=== PATIENT | male | born 1960 | race Caucasian/White ===

== ENCOUNTER 2018-10-02 14:39 | Observation (INO) | payer OTHER ==
[2018-10-02] MEDS ORDERED: NACHLORIDE 0.45% 1,000 ML IV SCH (16:00)
[2018-10-02] MEDS ORDERED: ACETAMINOPHEN 325 MG TABLET PO PRN (16:00)
[2018-10-02] MEDS ORDERED: ENOXAPARIN 40 MG/0.4 ML SQ SCH (16:00)
[2018-10-02] MEDS ORDERED: LOPERAMIDE HCL 2 MG CAPSULE PO PRN (16:00)
[2018-10-02] MEDS ORDERED: INFLUENZA VACCINE (for 3y+) 0.5 ML DOSE IMVAC ONE (16:00)
[2018-10-02] MEDS ORDERED: PNEUMOCOCCAL VACCINE 0.5 ML IMVAC ONE (16:00)
[2018-10-02] MEDS ORDERED: DIPHENHYDRAMINE 25 MG TAB/CAP PO PRN (16:00)
[2018-10-02] MEDS ORDERED: ONDANSETRON 4 MG (ODT) TAB PO PRN (16:00)
[2018-10-02] MEDS ORDERED: ONDANSETRON 4 MG/2 ML VIAL IV PRN (16:00)
[2018-10-02] MEDS ORDERED: POLYETHYL GLY 3350 17 GM/DOSE PO PRN (16:00)
[2018-10-02 17:09] VITALS: BMI 29.9
[2018-10-02 17:11] LABS: Absolute Lymphocytes (CBC) 1.5 K/uL (0.7-4.9); Absolute Monocytes 0.5 K/uL (0.1-1.3); Absolute Neutrophil 3.4 K/uL (1.8-8.0); Basophils % 0.8 % (0-1.3); Eosinophils % 1.8 % (0-4.4); Hematocrit 39.3 % (39.6-49.0); Lymphocytes % 26.7 % (15.3-44.8); MCH 31.1 pg (27.0-35.0); MCV 94.1 fL (80-100); MPV 9.2 fL (7.6-11.3); Monocytes % 9.5 % (3.3-12.3); RBC Red Blood Cell Count 4.18 M/uL (4.33-5.43)
[2018-10-02 17:15] LABS: Protime INR 1.13
[2018-10-02 17:27] LABS: Urine Appearance CLEAR; Urine Bilirubin NEGATIVE (NEG); Urine Blood NEGATIVE (NEG); Urine Color YELLOW; Urine Glucose 3+ (NEG); Urine Protein NEGATIVE (NEG); Urine Specific Gravity >=1.030 (1.005-1.030); Urine Urobilinogen 0.2 mg/dL (0.2-1.0)
[2018-10-02 17:28] LABS: Urine Microscopic Reflex NO UMIC
[2018-10-02] MEDS ORDERED: D50W 25 GM/50 ML SYRINGE IV PRN (17:42)
[2018-10-02] MEDS ORDERED: GLUCAGON 1 MG/VIAL IM PRN (17:42)
[2018-10-02] MEDS ORDERED: INSULIN GLARGINE 100 UNITS/ML SQ SCH (18:00)
[2018-10-02] MEDS: INSULIN -REGULAR HUMAN 50 UNIT/0.5 ML ML SQ SCH ×2 (18:32→21:00)
[2018-10-02 18:37] LABS: ALT/SGPT 29 U/L (12-78); AST/SGOT 17 U/L (15-37); Albumin 3.3 g/dL (3.4-5.0); Alkaline Phosphatase 80 U/L (45-117); BUN Blood Urea Nitrogen 33 mg/dL (7-18); Bicarbonate 26 mmol/L (21-32); Bilirubin Direct < 0.1 mg/dL (0-0.2); Bilirubin Total 0.3 mg/dL (0.2-1.0); Magnesium 1.5 mg/dL (1.8-2.4); Phosphorus 2.9 mg/dL (2.5-4.9); Protein, Total 6.9 g/dL (6.4-8.2); Sodium Level 129 mmol/L (136-145); Thyroid Stimulating Hormone 0.878 uIU/mL (0.360-3.740)
[2018-10-02 18:40] LABS: Glucose Level 593 mg/dL (74-106); Potassium 6.5 mmol/L (3.5-5.1)
[2018-10-02] MEDS ORDERED: SOD POLYSTYREN SUL 15 GM/60 ML UCUP PO ONE (18:47)
--- NOTE | 2018-10-02 19:26 | RAD REPORT ---
EXAM DESCRIPTION: RAD - Chest Pa And Lat (2 Views) - 10/02/2018 6:28 pm CLINICAL HISTORY: Shortness of breath, MR SA infection COMPARISON: January 2017 TECHNIQUE: PA and lateral views of the chest were obtained. FINDINGS: The lungs are clear of a peripheral mass, consolidation or failure finding. Fullness of th e left hilum is not clearly different from comparison. Lung markings are also not clearly different. Heart size is normal and central vasculature is within normal limits. No pleural effusion or pneum othorax seen. No acute bony finding noted. No aortic abnormality. IMPRESSION: Lung markings are prominent but not clearly different from comparison. No significant change from comparison.
[2018-10-02] MEDS ORDERED: Magnesium Sulfate 2gm IVPB 2 G/50 ML BAG IV ONE (21:00)
[2018-10-02] MEDS ORDERED: hydrOXYzine HCl 25 MG TAB PO PRN (21:59)
[2018-10-02] MEDS ORDERED: TRAMADOL HCL 50 MG TAB PO PRN (21:59)
--- NOTE | 2018-10-02 22:05 | EKG ---
Test Date: 2018-10-02 Test Time: 16:50:11 Wall Attendant: JOJO MEASUREMENT RESULTS: Intervals: Rate: 85 HI: 220 QRSD: 86 QT: 356 QTc: 423 [place]: P: 65 HI: 220 QRS: 45 T: 58 INTERPRETIVE STATEMENTS: Sinus rhythm with 1st degree AV block Nonspecific ST and T wave abnormality Abnormal ECG Compared to ECG 11/12/2016 14:39:16 First degree AV block now present ST (T wave) deviation now present Electronically Signed On 10-02-18 22:04:20 CDT by Santosh James
[2018-10-02] MEDS: NACHLORIDE 0.45% 1,000 ML IV SCH (22:10)
[2018-10-02 23:15] LABS: Potassium 4.4 mmol/L (3.5-5.1)
[2018-10-03 06:24] LABS: Magnesium 2.1 mg/dL (1.8-2.4); Potassium 3.7 mmol/L (3.5-5.1)
[2018-10-03 06:29] LABS: Absolute Lymphocytes (CBC) 3.2 K/uL (0.7-4.9); Absolute Monocytes 0.7 K/uL (0.1-1.3); Absolute Neutrophil 1.6 K/uL (1.8-8.0); Basophils % 0.7 % (0-1.3); Hematocrit 39.9 % (39.6-49.0); Lymphocytes % 55.1 % (15.3-44.8); MCH 31.6 pg (27.0-35.0); MCV 92.3 fL (80-100); MPV 8.4 fL (7.6-11.3); Monocytes % 12.1 % (3.3-12.3); RBC Red Blood Cell Count 4.33 M/uL (4.33-5.43)
--- NOTE | 2018-10-03 07:17 | RAD REPORT ---
EXAM DESCRIPTION: RAD - Chest Single View - 10/03/2018 1:31 am CLINICAL HISTORY: PICC line placement A preliminary report was provided at the time of the study and reviewed prior to final report. COMPARISON: None. FINDINGS: Portable chest was obtained following placement of a right upper extremity PICC line. The catheter tip is in the distal SVC.
[2018-10-03] MEDS ORDERED: POTASSIUM 25 MEQ EFFERV TAB PO ONE (07:21)
[2018-10-03] MEDS: INSULIN -REGULAR HUMAN 50 UNIT/0.5 ML ML SQ SCH ×2 (07:30→11:51)
[2018-10-03 07:52] LABS: Blood Morphology Comment NOT SEEN (NOT SEEN); Platelet Estimate ADEQ
[2018-10-03 08:55] VITALS: O2SAT 98
[2018-10-03] MEDS ORDERED: NA CHLORIDE 0.9% IVPB SCH (09:00)
[2018-10-03] MEDS ORDERED: DAPTOMYCIN IVPB SCH (09:00)
[2018-10-03] MEDS ORDERED: ENOXAPARIN 40 MG/0.4 ML SQ SCH (09:00)
[2018-10-03] MEDS ORDERED: GABAPENTIN 400 MG CAP PO SCH (09:00)
[2018-10-03] MEDS: NACHLORIDE 0.45% 1,000 ML IV SCH (11:20)
[2018-10-03 12:16] VITALS: BP 123/73; TEMP 98.2
--- NOTE | 2018-10-03 13:50 | P.DS ---
Admission Date: 10/02/18 Discharge Date: 10/03/18 Disposition: ROUTINE DISCHARGE Discharge Condition: FAIR Brief History of Present Illness: MR FLAHERTY HAS REFRACTORY CELLULITIS THAT CLINICALLY LOOKS LIKE MRSA. FAILED TO RECOVER WITH CIPRO AND DOXYCYCLIN. HE IS ALLERGI TO MANY MEDS. AT THIS POINT WE NEED DAPTOMYCIN DAILY FOR 14 DAYS. HE HAD VERY HIGH K SO WE HAD TO STOP LISINOPRIL AND GIVE MEDS TO REDUCE K. HE GETS LAB EVERY 3 MTHS. I HAVE REFERRED HIM FOR INSULIN PUMP BUT EVEN WITH THAT HE WAS NOT COMPLIANT IT WAS INCONVENIENT IN THE PAST WITH THE [email or web address] GAME OR SO. Vital Signs/Physical Exam: Temp Pulse Resp BP Pulse Ox 98.2 F 77 18 123/73 100 10/03/18 12:00 10/03/18 12:00 10/03/18 12:00 10/03/18 12:00 10/03/18 12:00 Laboratory Data at Discharge: WBC 5.8 K/uL (4.3-10.9) 10/03/18 05:39 Hgb 13.7 g/dL (13.6-17.9) 10/03/18 05:39 Hct 39.9 % (39.6-49.0) 10/03/18 05:39 Plt Count 275 K/uL (152-406) 10/03/18 05:39 PT 13.4 SECONDS (9.5-12.5) H 10/02/18 16:42 INR 1.13 10/02/18 16:42 APTT 34.0 SECONDS (24.3-36.9) 10/02/18 16:42 Sodium 138 mmol/L (136-145) 10/03/18 05:39 Potassium 3.7 mmol/L (3.5-5.1) 10/03/18 05:39 BUN 31 mg/dL (7-18) H 10/03/18 05:39 Creatinine 1.40 mg/dL (0.55-1.3) H 10/03/18 05:39 Glucose 55 mg/dL (74-106) L 10/03/18 05:39 Phosphorus 2.9 mg/dL (2.5-4.9) 10/02/18 16:42 Magnesium 2.1 mg/dL (1.8-2.4) D 10/03/18 05:39 Total Bilirubin 0.3 mg/dL (0.2-1.0) 10/02/18 16:42 AST 17 U/L (15-37) 10/02/18 16:42 ALT 29 U/L (12-78) 10/02/18 16:42 Alkaline Phosphatase 80 U/L (45-117) 10/02/18 16:42 Home Medications: Gabapentin [Neurontin] 800 mg PO TID 11/30/14 Rivaroxaban [Xarelto] 20 mg PO BEDTIME 11/30/14 Simvastatin 40 mg PO BEDTIME 11/30/14 Tramadol HCl [Ultram] 50 mg PO BID PRN 11/12/16 Ascorbic Acid [Vitamin C*] 500 mg PO BEDTIME 10/02/18 Cholecalciferol (Vitamin D3) [Vitamin D 1000 Iu Tab*] 2,000 unit PO BEDTIME 12/19 Docosahexanoic AC/Epa [Fish Oil 1,000 MG*] 1 cap PO BEDTIME 10/02/18 Insulin Glargine Human [Lantus*] 38 units SQ BEDTIME 10/02/18 Lactobacillus Combination No.4 [Probiotic] 1 cap PO BEDTIME 10/02/18 Testosterone Cypionate [Testone Cik] 1 ml IM SEECOM 10/02/18 Ubidecarenone/Vitamin E [Co Q-10 50 mg Softgel] 1 cap PO BEDTIME 10/02/18 Vitamin B Complex [Vitamin B Complex*] 1 cap PO BEDTIME 10/02/18 hydrOXYzine pamoate [Hydroxyzine Pamoate] 25 mg PO Q8H PRN 10/02/18 Patient Discharge Instructions: Jimmy, raise your insulin by 2 units every 2 days until glucose is controlled. If you eat at a set time you should not have low glucose. Because your potassium went high , I stopped lisinopril. I wll see you in office in one week.Take Daptomycin daily once , same time daily. Diet: ADA
[2018-10-03] MEDS ORDERED: RIVAROXABAN 15 MG TABLET PO SCH (21:00)
[2018-10-03] MEDS ORDERED: LACTOBACILLUS/ACIDOPHILUS TAB PO SCH (21:00)
[2018-10-03] MEDS ORDERED: ATORVASTATIN 20 MG TAB PO SCH (21:00)
[2018-10-03] MEDS ORDERED: PROMOD 30 ML DOSE PO SCH (21:00)
== END 2018-10-03 15:51 | disposition home or self-care (01) ==
LOC: 4TH 15:07
PROVIDERS: ADMIT Internal Medicine; ATTEND Internal Medicine
PROC: 02HV33Z Insertion of Infusion Device into Superior Vena Cava, Percutaneous Approach (ICD-10-PCS; principal; 2018-10-03)
DX: L03.116 Cellulitis of left lower limb (principal); E11.65 Type 2 diabetes mellitus with hyperglycemia; I10 Essential (primary) hypertension
CPT/HCPCS: 36415; 71045; 71046; 80048; 80076; 81003; 82043; 82306; 82607; 82947; 82962; 83036; 83735; 84100; 84443; 85025; 85610; 85730; 87040; 87086; 87088; 93005; G0378; J0878; J1650; J3475

== ENCOUNTER 2019-04-29 13:27 | Inpatient (IN) | payer OTHER ==
[2019-04-29] MEDS ORDERED: GLUCAGON 1 MG/VIAL IM PRN (14:46)
[2019-04-29] MEDS ORDERED: D50W 25 GM/50 ML SYRINGE IV PRN (14:46)
[2019-04-29 15:08] VITALS: BMI 30.1
[2019-04-29] MEDS ORDERED: ACETAMINOPHEN 325 MG TABLET PO PRN (15:23)
[2019-04-29 16:13] LABS: Absolute Lymphocytes (CBC) 1.6 K/uL (0.7-4.9); Absolute Neutrophil 9.4 K/uL (1.8-8.0); Basophils % 0.2 % (0-1.3); Eosinophils % 0.7 % (0-4.4); Lymphocytes % 13.3 % (15.3-44.8); MPV 8.6 fL (7.6-11.3); Monocytes % 7.9 % (3.3-12.3); RBC Red Blood Cell Count 4.86 M/uL (4.33-5.43)
[2019-04-29 16:17] LABS: Protime INR 1.97
[2019-04-29] MEDS ORDERED: INSULIN -REGULAR HUMAN 50 UNIT/0.5 ML ML SQ SCH (16:30)
[2019-04-29] MEDS: INSULIN -REGULAR HUMAN 50 UNIT/0.5 ML ML SQ SCH ×2 (16:30→20:33)
[2019-04-29] MEDS: Meropenem 1,000 MG in NA CHLORIDE 0.9% 100 ML IV SCH (16:58)
[2019-04-29 17:50] LABS: Potassium 5.1 mmol/L (3.5-5.1)
[2019-04-29 21:00] LABS: Urine Appearance CLEAR; Urine Bilirubin NEGATIVE (NEG); Urine Blood NEGATIVE (NEG); Urine Color YELLOW; Urine Glucose 3+ (NEG); Urine Protein NEGATIVE (NEG); Urine Specific Gravity >=1.030 (1.005-1.030); Urine Urobilinogen 0.2 mg/dL (0.2-1.0); Urine pH 5.5 (5.0-7.0)
[2019-04-29 21:01] LABS: Urine Microscopic Reflex NO UMIC
[2019-04-30] MEDS: Meropenem 1,000 MG in NA CHLORIDE 0.9% 100 ML IV SCH ×3 (00:13→17:20)
[2019-04-30] MEDS: INSULIN -REGULAR HUMAN 50 UNIT/0.5 ML ML SQ SCH ×4 (07:30→21:00)
--- NOTE | 2019-04-30 07:58 | P.HP ---
Certification for Inpatient Patient admitted to: Inpatient With expected LOS: >2 Midnights Practitioner: I am a practitioner with admitting privileges, knowledge of patient current condition, hospital course, and medical plan of care. Services: Services provided to patient in accordance with Admission requirements found in Title 42 Section 412.3 of the Code of Federal Regulations Patient History Date of Service: 04/30/19 Reason for admission: RIGHT FOOT INFECTION. History of Present Illness: MR. FLAHERTY HAS DIABETIC NEUROPATHY, HAS HAD GREAT TOE AMPUTATION ON R SIDE. SINCE THEN HE HAS HAD STUMP CALLUS FOR LONG TIME. HE HAD OSTEOMYELITIS OF FIRST TOE AND ALSO BASE OF SECOND TOE WHERE THERE WAS NO OPENING. AFTER [facility] ORAL ABX HE IMPROVED USING CIPRO AND DOXYCYCLIN. HE LOVES TO TRAVEL. 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 LAST TIME WHEN HE WENT TO [place] RECENTLY, HE WALKED A LOT ON THE STUMP AND CAME BACK WITH PAINFUL AND RED FOOT YESTERDAY. HE ALSO IS STUCK WITH A HOUSE THAT HAS FLOODED 3 TIMES LATELY. HE HAS TO WORK TO GET IT CLEANED AND REPAIRED. Allergies ceftriaxone [From Rocephin] Allergy (Verified 12/24/16 10:33) Hives/Rash Sulfa (Sulfonamide Antibiotics) Allergy (Verified 03/30/16 16:42) Hives vancomycin Allergy (Verified 12/24/16 10:33) Hives/Rash thiazolidinediones Allergy (Uncoded 11/30/14 16:24) Unknown Home Medications: Irbesartan [Avapro*] 1 tab PO DAILY 04/29/19 Rivaroxaban [Xarelto*] 20 mg PO DAILY 04/29/19 Simvastatin 1 tab PO BEDTIME 04/29/19 - Past Medical/Surgical History Has patient received pneumonia vaccine in the past: No Diabetic: Yes -: IDDM -: Hypercoagulation -: HTN -: Neuropathy -: hyperlipidemia -: DVT left leg -: neuropathy -: right hand ring finger trigger finger -: Left rotator cuff repair -: cataracts, bilateral lenses -: right great toe amputation 2015 -: right hand ring finger trigger finger( 2 weeks ago) -: right wrist surgery - Family History Father -: Diabetes, Cancer Mother Notes: well - Social History Smoking Status: Current some day smoker Alcohol use: Yes CD- Drugs: No Caffeine use: Yes Place of Residence: Home Review of Systems 10-point ROS is otherwise unremarkable Physical Examination - Vital Signs Temperature: 97.5 F Blood Pressure: 116/56 Pulse: 88 Respirations: 20 Pulse Ox (%): 96 - Physical Exam General: Moderate distress HEENT: Atraumatic, PERRLA, Mucous membr. moist/pink, EOMI, Sclerae nonicteric Neck: Supple, 2+ carotid pulse no bruit, No LAD, Without JVD or thyroid abnormality Respiratory: Clear to auscultation bilaterally, Normal air movement Cardiovascular: Regular rate/rhythm, Normal S1 S2 Gastrointestinal: Normal bowel sounds, No tenderness Musculoskeletal: No tenderness Integumentary: Diabetic ulcer (RIGHT FOOT CALLUS AT STUMP OF FIRST TOE WITH INFECTION NOW. CELLULITIS COVERING RODNEY WHOLE FOOT.) Neurological: Normal gait, Normal speech, Normal strength at 5/5 x4 extr, Normal tone, Normal affect Lymphatics: No axilla or inguinal lymphadenopathy - Studies Laboratory Data (last 24 hrs) 04/29/19 15:23: PT 22.6 H, INR 1.97, APTT 35.4 04/29/19 15:23: WBC 12.1 H, Hgb 14.7, Hct 45.0, Plt Count 233 04/29/19 15:23: Sodium 134 L, Potassium 5.1, BUN 25 H, Creatinine 1.55 H, Glucose 356 H Assessment and Plan - Problems (Diagnosis) (1) Cellulitis Onset Date: 10/03/18 Status: Acute Plan: IV MERREM. DICTATION OF THIS NOTE IS LATE HOSPITAL HAS COMPTUER ISSUES FOR LAST 254 HOURS. PICC LINE MRI REPORT PENDING. 6 WEEKS OF ABX POSSIBLE. HE WANTS AMPUTATION DONE TOE IS NOT HEALING FOR LONG TIME. (2) Diabetes mellitus Current Visit: No Status: Chronic Plan: POOR CONTROL EFFORTS ARE POOR ALSO. (3) Osteomyelitis Current Visit: No Status: Chronic - Advance Directives Does patient have a Living Will: No Does patient have a Durable POA for Healthcare: No
[2019-04-30] MEDS: RIVAROXABAN 20 MG TABLET PO SCH (10:16)
[2019-04-30] MEDS: IRBESARTAN 150 MG TAB PO SCH (10:16)
--- NOTE | 2019-04-30 15:26 | RAD REPORT ---
EXAM DESCRIPTION: RAD - Chest Single View - 04/30/2019 11:39 am CLINICAL HISTORY: Device placement PICC line placement FINDINGS: A PICC line has been inserted with its tip in the distal superior vena cava.
--- NOTE | 2019-04-30 17:50 | P.PN ---
Subjective Date of Service: 04/30/19 Chief Complaint: RIGHT FOOT INFECTION. Subjective: Improving (PAIN,FEVER, FOOT HAS IMPROVED.) Review of Systems 10-point ROS is otherwise unremarkable Physical Examination - Vital Signs Temperature: 97.3 F Blood Pressure: 125/68 Pulse: 84 Respirations: 16 Pulse Ox (%): 99 - Physical Exam General: Alert, Mild distress HEENT: Atraumatic, PERRLA, EOMI Neck: Supple, JVD not distended Respiratory: Clear to auscultation bilaterally, Normal air movement Cardiovascular: Regular rate/rhythm, Normal S1 S2 Gastrointestinal: Normal bowel sounds, No tenderness Musculoskeletal: No tenderness Integumentary: Erythema (LOT BETTER AND NO REACTION TO ABXSO FAR.), Warmth Neurological: Normal speech, Normal tone, Normal affect Lymphatics: No axilla or inguinal lymphadenopathy - Studies Laboratory Data (last 24 hrs) 04/29/19 15:23: Sodium 134 L, Potassium 5.1, BUN 25 H, Creatinine 1.55 H, Glucose 356 H Medications List Reviewed: Yes Assessment And Plan - Current Problems (Diagnosis) (1) Cellulitis Onset Date: 10/03/18 Status: Acute Plan: IV MERREM. DICTATION OF THIS NOTE IS LATE HOSPITAL HAS COMPTUER ISSUES FOR LAST 254 HOURS. PICC LINE MRI REPORT PENDING. 6 WEEKS OF ABX POSSIBLE. HE WANTS AMPUTATION DONE TOE IS NOT HEALING FOR LONG TIME. IV MERREM HE HAS OSTEOMYELITIS OF THE TOE SUSPECTED. (2) Diabetes mellitus Current Visit: No Status: Chronic Plan: POOR CONTROL EFFORTS ARE POOR ALSO. (3) Osteomyelitis Current Visit: No Status: Chronic
--- NOTE | 2019-04-30 17:52 | RAD REPORT ---
EXAM DESCRIPTION: MRI - Foot Right Wo Cont - 04/29/2019 10:00 pm CLINICAL HISTORY: osteomylelitis Pain and swelling, soft tissue wound. COMPARISON: Foot Right Wo Cont dated 10/29/2017; Foot Right Wo Cont dated 03/27/2017; Foot Right Wo C ont dated 12/28/2016; Foot Right Wo Cont dated 11/12/2016 FINDINGS: Previous amputation involving the great toe is noted. The residual base of the proximal ph alanx of the great toe demonstrates abnormal diminished T1 signal and elevated T2 signal with surroun ding edematous tissues compatible with osteomyelitis. The first metatarsal appear spared. No addition al areas of osteomyelitis seen. No localized fluid collections are seen. IMPRESSION: Mild osteomyelitis involving the remnant proximal phalanx of the great toe as detailed.
[2019-04-30] MEDS ORDERED: ATORVASTATIN 20 MG TAB PO SCH (21:00)
[2019-05-01] MEDS: Meropenem 1,000 MG in NA CHLORIDE 0.9% 100 ML IV SCH ×2 (00:14→08:09)
[2019-05-01 02:06] VITALS: O2SAT 98
[2019-05-01] MEDS: INSULIN -REGULAR HUMAN 50 UNIT/0.5 ML ML SQ SCH ×2 (07:30→11:30)
[2019-05-01] MEDS: IRBESARTAN 150 MG TAB PO SCH (08:09)
[2019-05-01] MEDS: RIVAROXABAN 20 MG TABLET PO SCH (08:09)
[2019-05-01] MEDS ORDERED: COLLAGENASE 30 GM OINTMENT TOP SCH (09:00)
[2019-05-01 12:01] VITALS: BP 124/65; TEMP 97.9
--- NOTE | 2019-05-01 13:44 | P.DS ---
Admission Date: 04/29/19 Discharge Date: 05/01/19 Disposition: ROUTINE DISCHARGE Discharge Condition: FAIR Reason for Admission: RIGHT FOOT INFECTION. - Problems (1) Cellulitis Onset Date: 10/03/18 Status: Acute (2) Diabetes mellitus Current Visit: No Status: Chronic (3) Osteomyelitis Current Visit: No Status: Chronic Brief History of Present Illness: MR. FLAHERTY HAS DIABETIC NEUROPATHY, HAS HAD GREAT TOE AMPUTATION ON R SIDE. SINCE THEN HE HAS HAD STUMP CALLUS FOR LONG TIME. HE HAD OSTEOMYELITIS OF FIRST TOE AND ALSO BASE OF SECOND TOE WHERE THERE WAS NO OPENING. AFTER [facility] ORAL ABX HE IMPROVED USING CIPRO AND DOXYCYCLIN. HE LOVES TO TRAVEL. 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 LAST TIME WHEN HE WENT TO [place] RECENTLY, HE WALKED A LOT ON THE STUMP AND CAME BACK WITH PAINFUL AND RED FOOT YESTERDAY. HE ALSO IS STUCK WITH A HOUSE THAT HAS FLOODED 3 TIMES LATELY. HE HAS TO WORK TO GET IT CLEANED AND REPAIRED. FLORENCIA HAS IMPROVED WELL. HIS STUMP HAS MILD OSTEOMYELITIS. HE WILL BE ON IV MERREM FOR ABX. IT HAS WORKED GREAT. HE IS ALLERGIC TO MANY MEDICINES. I DON' T SEE ANY REASON FOR DEEP CULTURE HIS WOUND IS CONTAMINATED AND HE IS ALLERGIC TO MOST MEDICINES. Vital Signs/Physical Exam: Temp Pulse Resp BP Pulse Ox 97.9 F 88 14 124/65 96 05/01/19 12:00 05/01/19 12:00 05/01/19 12:00 05/01/19 12:00 05/01/19 12:00 Laboratory Data at Discharge: WBC 12.1 K/uL (4.3-10.9) H 04/29/19 15:23 Hgb 14.7 g/dL (13.6-17.9) 04/29/19 15:23 Hct 45.0 % (39.6-49.0) 04/29/19 15:23 Plt Count 233 K/uL (152-406) 04/29/19 15:23 PT 22.6 SECONDS (9.5-12.5) H 04/29/19 15:23 INR 1.97 04/29/19 15:23 APTT 35.4 SECONDS (24.3-36.9) 04/29/19 15:23 Sodium 134 mmol/L (136-145) L 04/29/19 15:23 Potassium 5.1 mmol/L (3.5-5.1) 04/29/19 15:23 BUN 25 mg/dL (7-18) H 04/29/19 15:23 Creatinine 1.55 mg/dL (0.55-1.3) H 04/29/19 15:23 Glucose 356 mg/dL (74-106) H 04/29/19 15:23 Home Medications: Irbesartan [Avapro*] 1 tab PO DAILY 04/29/19 Rivaroxaban [Xarelto*] 20 mg PO DAILY 04/29/19 Simvastatin 1 tab PO BEDTIME 04/29/19 Patient Discharge Instructions: SEE DR. PALACIOS NEXT WEEK. DR. ROTHMAN ONE WEEK. Diet: ADA Followup: Sudhir Rothman MD [Primary Care Provider] - Garcia Palacios MD [ACTIVE - CAN ADMIT] -
== END 2019-05-01 14:02 | disposition home or self-care (01) | DRG 638 ==
LOC: 2ND 14:36
PROVIDERS: ADMIT Internal Medicine; ATTEND Internal Medicine
PROC: 02HV33Z Insertion of Infusion Device into Superior Vena Cava, Percutaneous Approach (ICD-10-PCS; principal; 2019-04-29)
DX: E11.69 Type 2 diabetes mellitus with other specified complication (principal); M86.671 Other chronic osteomyelitis, right ankle and foot; L03.115 Cellulitis of right lower limb; E11.65 Type 2 diabetes mellitus with hyperglycemia; E11.40 Type 2 diabetes mellitus with diabetic neuropathy, unspecified; I10 Essential (primary) hypertension; E78.5 Hyperlipidemia, unspecified; F17.210 Nicotine dependence, cigarettes, uncomplicated; Z89.411 Acquired absence of right great toe
CPT/HCPCS: 11042; 36415; 71045; 80048; 81003; 82962; 85025; 85610; 85652; 85730; 86140; 93005; J3590